=== PATIENT | female | born 1975 | race American Indian/Alaskan Native ===

== ENCOUNTER 2020-05-03 10:41 | Emergency (ER) | payer SELFPAY ==
[2020-05-03 11:26] VITALS: BP 105/68
--- NOTE | 2020-05-03 12:04 | Emergency Department Report ---
Chief Complaint: Nausea/Vomiting/Diarrhea Stated Complaint: CANT KEEP FOOD DOWN Time Seen by Provider: 05/03/20 11:50 - HPI History of Present Illness: 44-year-old female presents to the ER today complaint of nausea and vomiting. Patient states that she had her lap band adjusted this past Monday by her surgeons in [place]. She states that she has been vomiting since yesterday. She states that she is vomited twice yesterday, and 3 times so far today. She states emesis is mainly water. She does report burning chest pain from the vomiting. She states that her last bowel movement was this past Monday. She denies any abdominal pain or diarrhea. She states that she has had similar symptoms in the past when her lap band is too tight. She states that she was hoping to have her lap band adjusted in the ER here today which is the main reason why she came in. Scheduled to return to [place] tomorrow. - ROS Review of Systems: Positive for nausea, positive for vomiting Positive for burning chest pain - Exam Vital Signs: Vital Signs 05/03/20 11:26 Temperature 98.2 F Pulse Rate 65 Respiratory 20 Rate Blood Pressure 105/68 O2 Sat by Pulse 100 Oximetry Physical Exam: Patient well-appearing, does not appear toxic, not significant signs of dehydration and does not appear to be in any pain or respiratory distress. She is neurologically intact with a normal gait. Vital signs are stable. MSE screening note: Focused history and physical exam performed. Due to findings the following was ordered: Patient discussed with doctor:: JEANINE WEISS ED Medical Decision Making - Medical Decision Making Patient is well-appearing, nontoxic, and does not appear to be significantly dehydrated. Her vital signs are normal. She does not appear to be in any acute pain or respiratory distress. She is neurologically intact. Confirmed with Dr. Weiss that we did not do any lab and adjustments here at [facility]. We do not have bariatric surgery coverage here. Offered patient antiemetics and a p.o. challenge here and and if tolerated would recommend clear liquid diet and rx for anti-emetics until she returns to [place] where she can follow-up with her bariatric surgeon tomorrow. But patient refused, she states that she knows the antiemetics does not go to work, and she was hoping to have her lap band adjusted. Patient agreed to sign AMA. Risk and benefits discussed with patient. See signed form in patient's chart. ED Disposition for MSE Clinical Impression: Vomiting Disposition: DC-07 LEFT AGAINST MED ADVICE Condition: Stable Forms: AMA Form
== END 2020-05-03 11:53 | disposition left against medical advice (07) ==
LOC: ED 10:41
DX: R11.10 Vomiting, unspecified (principal)
CPT/HCPCS: 99282